=== PATIENT | female | born 1995 | race Caucasian/White ===

== ENCOUNTER 2017-02-17 09:34 | Emergency (ER) | payer OTHER ==
[2017-02-17 09:44] VITALS: BP 98/62; PULSE 82; TEMP 98; BMI 21.9
[2017-02-17] MEDS ORDERED: MAG HYDROX/AL HYDROX/SIMETH 30 ML UNIT-DOSE CUP PO ONE (10:54)
[2017-02-17] MEDS ORDERED: IBUPROFEN 600 MG TABLET (FP) PO ONE ×2 (10:54→11:39)
[2017-02-17 11:17] LABS: MCH 29.3 pg (25.7-33.7); MCHC 33.8 g/dl (32.0-36.0); MEAN CELL VOLUME 86.9 fl (80-96); MEAN PLT VOLUME 7.3 fl (7.5-11.1); PLATELET COUNT 275 K/MM3 (134-434); RDW 13.5 % (11.6-15.6); WHITE BLOOD COUNT 10.2 K/mm3 (4.0-10.0)
[2017-02-17] MEDS ORDERED: MAG HYDROX/AL HYDROX/SIMETH 30 ML UNIT-DOSE CUP ONE (11:39)
--- NOTE | 2017-02-17 11:40 | PDOC ---
History of Present Illness - General Chief Complaint: Chest Pain Stated Complaint: CHEST PAIN Time Seen by Provider: 02/17/17 10:53 History Source: Patient Exam Limitations: No Limitations - History of Present Illness Initial Comments: 02/17/17 11:36 21 yr female with one year of chest pain, left sided "stabbing sensation" under the left breast non radiating. Pt denies nausea or pressure, has IUD placed 2 months ago. Pt has not sought medical care until day when she told her cousin and they said to come to the ER. Pt currently does not have any chest pain. no fever or chills. Severity: reports: mild Possible Cause: Yes: frequent episodes (daily ) Past History - Past Medical History Allergies/Adverse Reactions: Allergies Allergy/AdvReac Type Severity Reaction Status Date / Time No Known Allergies Allergy Verified 02/17/17 09:39 Home Medications: Ambulatory Orders NK [No Known Home Medication] 02/17/17 Other medical history: NONE - Family Disease History Comment:: 02/17/17 11:38 none - Psycho/Social/Smoking Cessation Hx Anxiety: No Suicidal Ideation: No Smoking History: Never smoked Have you smoked in the past 12 months: Yes Number of Cigarettes Smoked Daily: 1 Information on smoking cessation initiated: Yes Hx Alcohol Use: No Drug/Substance Use Hx: No Substance Use Type: None Respiratory Specific PMHX - Complaint Specific PMHX Angina: No Bronchitis: No Pneumonia: No Pulmonary Embolus: No TB (Tuberculosis): No Review of Systems - Review of Systems Able to Perform ROS?: Yes Is the patient limited Arabic proficient: No Constitutional: No: Symptoms Reported HEENTM: No: Symptoms Reported Respiratory: No: Symptoms reported Cardiac (ROS): Yes: See HPI, Chest Pain ABD/GI: No: Symptoms Reported : No: Symptoms Reported Musculoskeletal: No: Symptoms Reported Integumentary: No: Symptoms Reported Neurological: No: Symptoms reported *Physical Exam - Vital Signs Last Vital Signs Temp Pulse Resp BP Pulse Ox 98.0 F 82 18 98/62 100 02/17/17 09:40 02/17/17 09:40 02/17/17 09:40 02/17/17 09:40 02/17/17 09:40 - Physical Exam General Appearance: Yes: Nourished, Appropriately Dressed HEENT: positive: EOMI, OLGA, Normal ENT Inspection, TMs Normal, Pharynx Normal Neck: positive: Supple. negative: Tender Respiratory/Chest: positive: Lungs Clear, Normal Breath Sounds, Other (breasts without lump or mass, no redness or discharge from breasts). negative: Chest Tender Cardiovascular: positive: Regular Rhythm, Regular Rate Gastrointestinal/Abdominal: positive: Normal Bowel Sounds, Soft Musculoskeletal: positive: Normal Inspection Extremity: positive: Normal Capillary Refill, Normal Inspection, Normal Range of Motion Integumentary: positive: Normal Color, Dry, Warm. negative: Rash, Swelling Neurologic: positive: Fully Oriented, Alert, Normal Mood/Affect, Normal Response , Motor Strength 5/5 Heart Score/ECG Review - Age Age: </= 45 - Risk Factors Risk Factors Heart Score: No Hx Hypercholesterolemia, No Hx Hypertension, No Hx Diabetes, Yes Smoking History, Yes Positive family hx of cardiac disease, No Hx Obesity Based on the list above the patient has:: 1-2 risk factors - ECG Intrepretation Rhythm: Regular Rhythm - ECG Impressions Comment:: 02/17/17 11:42 NSR with sinus arythmia unchanged from previous EKG ED Treatment Course - LABORATORY CBC & Chemistry Diagram: 02/17/17 10:56 02/17/17 10:56 - ADDITIONAL ORDERS Additional order review: Laboratory Results 02/17/17 10:56 Urine HCG, Qual Negative 02/17/17 10:56 RBC 4.34 MCV 86.9 MCHC 33.8 RDW 13.5 MPV 7.3 L Medical Decision Making - Medical Decision Making 02/17/17 11:39 cc: one year on and off stabbing sensation under left breast midline neg nvd neg fever or cough no pain at present EKG done in triage signed by in the ER NSR with sinus arrythmia will check labs, r/o PE 02/17/17 12:30 pt came to me stating that she has urinary frequency and urgency for 3 days. will check for UTI *DC/Admit/Observation/Transfer Diagnosis at time of Disposition: Chest pain Qualifiers: Chest pain type: unspecified Qualified Code(s): R07.9 - Chest pain, unspecified - Discharge Dispostion Disposition: HOME Condition at time of disposition: Good - Referrals Referrals: Roberto Lieberman MD [Staff Physician] - - Patient Instructions Additional Instructions: please call the real estate administrative assistant Dr. Lieberman for follow up, bring copies of your blood work with you make sure you drink pleanty of water to stay hydrated avoid any caffeinated beverages or supplements that contain stimulants or caffeine as this can make symptoms worse return to ER for any worsening symptoms
[2017-02-17 11:44] LABS: ANION GAP 8 (8-16); BILIRUBIN,TOTAL 0.3 mg/dL (0.2-1.0); CALCIUM 9.3 mg/dL (8.5-10.1); CO2 27 mmol/L (21-32); COCKROFT - GAULT 129.5825; CREATININE 0.6 mg/dL (0.55-1.02); GLUCOSE,RANDOM 94 mg/dL (74-106); SGOT/AST 20 U/L (15-37); SGPT/ALT 29 U/L (12-78); TOT PROT 7.4 g/dl (6.4-8.2)
[2017-02-17 11:46] LABS: ALK PHOS 80 U/L (45-117); TROPONIN I < 0.02 ng/ml (0.00-0.05)
[2017-02-17 12:51] LABS: URINE APPEARANCE CLEAR; URINE BILIRUBIN NEGATIVE (NEGATIVE); URINE COLOR LTYELLOW; URINE GLUCOSE (UA) NEGATIVE (NEGATIVE); URINE KETONE NEGATIVE (NEGATIVE); URINE LEUK ESTERASE NEGATIVE (NEGATIVE); URINE NITRITE NEGATIVE (NEGATIVE); URINE PROTEIN NEGATIVE (NEGATIVE); URINE UROBILINOGEN NEGATIVE E.U./dl (0.2-1.0)
[2017-02-17 12:53] LABS: URINE BLOOD 2+ (NEGATIVE)
[2017-02-17 12:55] LABS: URINE RBC 5 /hpf (0-3); URINE WBC 1 /hpf (3-5)
--- NOTE | 2017-02-18 10:53 | EKG ---
Test Reason : Blood Pressure : / mmHG Vent. Rate : 066 BPM Atrial Rate : 066 BPM P-R Int : 142 ms QRS Dur : 074 ms QT Int : 394 ms P-R-T Axes : 024 028 016 degrees QTc Int : 413 ms SINUS RHYTHM WITH MARKED SINUS ARRHYTHMIA OTHERWISE NORMAL ECG WHEN COMPARED WITH ECG OF 29-MAY-2014 18:54, NO SIGNIFICANT CHANGE WAS FOUND Confirmed by DALE YEAGER MD ([id number]) on 02/18/2017 10:53:05 AM Referred By: Confirmed By:DALE YEAGER MD
== END 2017-02-17 15:21 | disposition home or self-care (01) ==
LOC: JERFT 09:34
DX: R07.9 Chest pain, unspecified (principal)
CPT/HCPCS: 36415; 71275-TC; 80053; 81003; 81015; 82550; 84443; 84481; 84484; 84703; 85027; 85379; 87086; 93005; 93010; 99282-25

== ENCOUNTER 2017-05-11 10:50 | Emergency (ER) | payer OTHER ==
[2017-05-11 11:46] VITALS: BP 118/55; PULSE 82; TEMP 98.3; BMI 21.9
--- NOTE | 2017-05-11 13:46 | PDOC ---
History of Present Illness - General Chief Complaint: Edema Stated Complaint: BLISTERS ON BOTH LEGS Time Seen by Provider: 05/11/17 13:18 Past History - Past Medical History Allergies/Adverse Reactions: Allergies Allergy/AdvReac Type Severity Reaction Status Date / Time No Known Allergies Allergy Verified 05/11/17 11:40 Home Medications: Ambulatory Orders Sulfamethoxazole/Trimethoprim [Bactrim Ds -] 1 tab PO BID #14 tablet 05/11/17 Diabetes: No HTN: No Hypercholesterolemia: No Other medical history: DENIES. - Psycho/Social/Smoking Cessation Hx Anxiety: No Suicidal Ideation: No Smoking History: Current every day smoker Have you smoked in the past 12 months: Yes Number of Cigarettes Smoked Daily: 3 Information on smoking cessation initiated: No Hx Alcohol Use: No Drug/Substance Use Hx: No Substance Use Type: None *Physical Exam - Vital Signs Last Vital Signs Temp Pulse Resp BP Pulse Ox 98.3 F 82 19 118/55 97 05/11/17 11:40 05/11/17 11:40 05/11/17 11:40 05/11/17 11:40 05/11/17 11:40 *DC/Admit/Observation/Transfer Diagnosis at time of Disposition: Blister of leg, left Qualifiers: Encounter type: initial encounter Qualified Code(s): S80.822A - Blister ( nonthermal), left lower leg, initial encounter Blister of leg, right Qualifiers: Encounter type: initial encounter Qualified Code(s): S80.821A - Blister ( nonthermal), right lower leg, initial encounter - Discharge Dispostion Disposition: HOME Condition at time of disposition: Good Admit: No - Referrals Referrals: Charla Camp MD [Staff Physician] - - Patient Instructions Printed Discharge Instructions: DI for Blisters Additional Instructions: You have blisters on your legs. Two were drained in the Emergency department and sent for culture. You may call [phone] for your results. You were started on antibiotics. Take as prescribed and finish the dose even if you feel better. Follow up with dermatology within one week. Return to the ED if the blisters get worse, you have increasing pain, develop fevers chills, or any changes in your symptoms. - Post Discharge Activity Work/School Note: Back to Work
== END 2017-05-11 13:55 | disposition home or self-care (01) ==
LOC: JER 10:50 → JERFT 10:50
DX: S80.822A Blister (nonthermal), left lower leg, initial encounter (principal); S80.821A Blister (nonthermal), right lower leg, initial encounter
CPT/HCPCS: 87070; 87186; 87205; 99281-25

== ENCOUNTER 2018-12-02 19:07 | Emergency (ER) | payer OTHER ==
[2018-12-02 19:13] VITALS: BP 103/58; PULSE 77; TEMP 98.3; BMI 25.6
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
[2018-12-02] MEDS ORDERED: ACETAMINOPHEN 500 MG TABLET (FP) PO ONE (19:52)
[2018-12-02] MEDS ORDERED: ACETAMINOPHEN 500 MG TABLET (FP) ONE (19:54)
== END 2018-12-02 21:29 | disposition home or self-care (01) ==
LOC: JERFT 19:07
DX: S09.90XA Unspecified injury of head, initial encounter (principal); V43.52XA Car driver injured in collision with other type car in traffic accident, initial encounter; Y93.89 Activity, other specified; Y92.410 Unspecified street and highway as the place of occurrence of the external cause
CPT/HCPCS: 70450-TC; 84703; 99281-25

== ENCOUNTER 2019-05-02 17:51 | Emergency (ER) | payer BC, OTHER ==
[2019-05-02 17:59] VITALS: BP 101/65; PULSE 73; TEMP 97.7; BMI 29.2
--- NOTE | 2019-05-02 18:19 | PDOC ---
History of Present Illness - General Chief Complaint: Ingrown toenail Stated Complaint: TOES INFECTED Time Seen by Provider: 05/02/19 18:04 History Source: Patient Exam Limitations: No Limitations - History of Present Illness Initial Comments: 05/02/19 18:17 HISTORY OF PRESENT ILLNESS: 23-year-old woman denies medical history who presents to the emergency department for evaluation of right great toe pain and swelling after receiving a pedicure 3 days ago. Patient denies any discharge or drainage from the wound. Patient reports she has not had a fever. No recent travel or sick contacts. PAST MEDICAL HISTORY: Denies past medical history SURGICAL HISTORY: Denies ALLERGIES: No known drug allergies REVIEW OF SYSTEMS General/Constitutional: Denies fever or chills. Denies weakness, weight change. HEENT: Denies change in vision. Denies ear pain or discharge. Denies sore throat. Cardiovascular: Denies chest pain or shortness of breath. Respiratory: Denies cough, wheezing, or hemoptysis. Gastrointestinal: Denies nausea, vomiting, diarrhea or constipation. Denies rectal bleeding. Genitourinary: Denies dysuria, frequency, or change in urination. Musculoskeletal: Denies joint or muscle swelling or pain. Denies neck or back pain. Skin and breasts: see HPI Neurologic: Denies headache, vertigo, loss of consciousness, or loss of sensation. Psychiatric: Denies depression or anxiety. Endocrine: Denies increased thirst. Denies abnormal weight change. Hematologic/Lymphatic: Denies anemia, easy bleeding, or history of blood clots. Allergic/Immunologic: Denies hives or skin allergy. Denies latex allergy. PHYSICAL EXAM General Appearance: Well-appearing, appropriately dressed. No apparent distress , no intoxication. Vascular Pulses: Dorsalis-Pedis (R): 2+, Dorsalis-Pedis (L): 2+ Musculoskeletal/Extremities: Normal inspection. FROM of all extremities, normal capillary refill. Pelvis Stable. No CVA tenderness. No tenderness to extremities, pedal edema, swelling, erythema or deformity. Integumentary: Erythema and tenderness present over the medial cuticle of the right great toe. No discharge or drainage present no area of fluctuance noted. Scant dry blood present. The eponychial without any active bleeding. Full active range of motion of right great toe noted. No lymphangitis present. Capillary refill less than 2 seconds. Past History - Past Medical History Allergies/Adverse Reactions: Allergies Allergy/AdvReac Type Severity Reaction Status Date / Time No Known Allergies Allergy Verified 05/02/19 17:58 Home Medications: Ambulatory Orders Cephalexin Monohydrate [Keflex -] 500 mg PO Q6H #28 capsule 05/02/19 COPD: No Diabetes: No HTN: No Hypercholesterolemia: No - Immunization History Immunization Up to Date: Yes - Suicide/Smoking/Psychosocial Hx Smoking History: Never smoked Have you smoked in the past 12 months: Yes Number of Cigarettes Smoked Daily: 3 Hx Alcohol Use: No Drug/Substance Use Hx: No Substance Use Type: None *Physical Exam - Vital Signs Last Vital Signs Temp Pulse Resp BP Pulse Ox 97.7 F 73 14 101/65 99 05/02/19 17:56 05/02/19 17:56 05/02/19 17:56 05/02/19 17:56 05/02/19 17:56 Medical Decision Making - Medical Decision Making 05/02/19 18:19 A/P: 23-year-old woman with cellulitis of right great toe Physical exam is consistent with a cellulitis possible early paronychia without any obvious drainage at this time. Patient instructed to perform warm soaks at home and was given a prescription for Keflex 500 4 times a day to be taken for the next 7 days. I discussed the physical exam findings, ancillary test results and final diagnoses with the patient. I answered all of the patient's questions. The patient was satisfied with the care received and felt comfortable with the discharge plan and treatment plan. The patient will call their primary care physician within 24 hours to arrange follow-up and will return to the Emergency Department with any new, persistent or worsening symptoms. Portions of this note have been documented using voice recognition software. As a result, errors may occur in the croze machine operator process. Effort has been made to correct all grammatical and croze machine operator error, but some may have been missed. *DC/Admit/Observation/Transfer Diagnosis at time of Disposition: Cellulitis of great toe of right foot - Discharge Dispostion Disposition: HOME Condition at time of disposition: Stable Decision to Admit order: No - Prescriptions Prescriptions: Cephalexin Monohydrate [Keflex -] 500 mg PO Q6H #28 capsule - Referrals - Patient Instructions Additional Instructions: Take Keflex 500 mg 4 times a day for the next 7 days Finish all antibiotics even if you feel better. Apply warm soaks to your foot 3 times a day as needed. Return to emergency department for any worsening pain, drainage, or any other concerns. Thank you very much for choosing us to provide your emergent health care needs. - Post Discharge Activity
== END 2019-05-02 18:19 | disposition home or self-care (01) ==
LOC: JERFT 17:51
DX: L03.031 Cellulitis of right toe (principal)
CPT/HCPCS: 99281-25

== ENCOUNTER 2019-05-07 01:47 | Emergency (ER) | payer BC, OTHER ==
[2019-05-07 02:07] VITALS: BP 105/62; PULSE 78; TEMP 97.6; BMI 28.3
--- NOTE | 2019-05-07 02:30 | PDOC ---
History of Present Illness - General Chief Complaint: Ingrown toenail Stated Complaint: SWELLING,PAIN/RT TOE Time Seen by Provider: 05/07/19 02:28 - History of Present Illness Initial Comments: 05/07/19 03:06 Redness of right toe beginning (04/29/19) following pedicure. Patient evaluated [facility] (05/02/19), and given Keflex 500 mg Q6. Patient denies GOOD, vision change, palpitations, cough, wheezing, orthopena, PND , leg swelling/pain, N/V, F,C, CP, SOB, urinary complaints, hematuria, BPR, abdominal pain, diarrhea, constipation, lightheadedness, weakness, sensory changes. PMHx: as noted above ROS: as noted SHx: Denies Etoh, IVDA, tobacco use Allergies: NKDA Past History - Past Medical History Allergies/Adverse Reactions: Allergies Allergy/AdvReac Type Severity Reaction Status Date / Time No Known Allergies Allergy Verified 05/07/19 02:11 Home Medications: Ambulatory Orders Cephalexin Monohydrate [Keflex -] 500 mg PO Q6H #28 capsule 05/02/19 COPD: No Diabetes: No HTN: No Hypercholesterolemia: No - Immunization History Immunization Up to Date: Yes - Suicide/Smoking/Psychosocial Hx Smoking History: Unknown if ever smoked Have you smoked in the past 12 months: Yes Number of Cigarettes Smoked Daily: 3 Hx Alcohol Use: No Drug/Substance Use Hx: No Substance Use Type: None Review of Systems - Review of Systems Comments:: 05/07/19 03:06 GENERAL/CONSTITUTIONAL: No fever or chills. No weakness. HEAD, EYES, EARS, NOSE AND THROAT: No change in vision. No ear pain or discharge. No sore throat. CARDIOVASCULAR: No chest pain or shortness of breath RESPIRATORY: No cough, wheezing, or hemoptysis. GASTROINTESTINAL: No nausea, vomiting, diarrhea or constipation. GENITOURINARY: No dysuria, frequency, or change in urination. MUSCULOSKELETAL: + right toe pain and swelling. No joint or muscle swelling or pain. No neck or back pain. SKIN: No rash NEUROLOGIC: No headache, vertigo, loss of consciousness, or change in strength/ sensation. ENDOCRINE: No increased thirst. No abnormal weight change HEMATOLOGIC/LYMPHATIC: No anemia, easy bleeding, or history of blood clots. ALLERGIC/IMMUNOLOGIC: No hives or skin allergy. *Physical Exam - Vital Signs Last Vital Signs Temp Pulse Resp BP Pulse Ox 97.6 F 78 18 105/62 98 05/07/19 01:52 05/07/19 01:52 05/07/19 01:52 05/07/19 01:52 05/07/19 01:52 - Physical Exam Comments: 05/07/19 03:06 GENERAL: Awake, alert, and fully oriented, in no acute distress HEAD: No signs of trauma, normocephalic, atraumatic EYES: PERRLA, EOMI, sclera anicteric, conjunctiva clear ENT: Auricles normal inspection, hearing grossly normal, nares patent, oropharynx clear without exudates. Moist mucosa NECK: Normal ROM, supple, no lymphadenopathy, JVD, or masses LUNGS: No distress, speaks full sentences, clear to auscultation bilaterally HEART: Regular rate and rhythm, normal S1 and S2, no murmurs, rubs or gallops, peripheral pulses normal and equal bilaterally. ABDOMEN: Soft, nontender, normoactive bowel sounds. No guarding, no rebound. No masses EXTREMITIES : Normal inspection, Normal range of motion, no edema. No clubbing or cyanosis. NEUROLOGICAL: Cranial nerves II through XII grossly intact. Normal speech, normal gait, no focal sensorimotor deficits SKIN: Warm, Dry, normal turgor, no rashes or lesions noted *DC/Admit/Observation/Transfer - Referrals - Patient Instructions Additional Instructions: Please return to the emergency department with any new or worsening symptoms or concerns. Please follow up with your primary care physician within 72 hours. - Post Discharge Activity
--- NOTE | 2019-05-07 03:20 | PDOC ---
Attending Attestation - Resident Resident Name: Dick Aguiar - ED Attending Attestation I have performed the following: I have examined & evaluated the patient, The case was reviewed & discussed with the resident, I agree w/resident's findings & plan, Exceptions are as noted
== END 2019-05-07 03:26 | disposition left against medical advice (07) ==
LOC: JER 01:47
DX: Z53.21 Procedure and treatment not carried out due to patient leaving prior to being seen by health care provider (principal)
CPT/HCPCS: 99281-25

== ENCOUNTER 2019-05-07 08:38 | Emergency (ER) | payer BC, OTHER ==
[2019-05-07 08:55] VITALS: BP 98/64; PULSE 73; TEMP 98.2; BMI 29.2
--- NOTE | 2019-05-07 09:31 | PDOC ---
History of Present Illness - General Chief Complaint: Pain, Acute Stated Complaint: RT TOE INFECTION Time Seen by Provider: 05/07/19 09:02 History Source: Patient Exam Limitations: No Limitations - History of Present Illness Initial Comments: 05/07/19 09:14 Patient is here with complaints of right great toe pain and swelling. States received pedicure a few days ago and has an infection to the medial aspect/ paronychia. Occurred: reports: just prior to arrival Severity: reports: mild Pain Location: reports: lower extremity (right great toe ) Loss of Consciousness: no loss of consciousness Associated Symptoms (Fall): denies symptoms Past History - Travel Traveled outside of the country in the last 30 days: No Close contact w/someone who was outside of country & ill: No - Past Medical History Allergies/Adverse Reactions: Allergies Allergy/AdvReac Type Severity Reaction Status Date / Time No Known Allergies Allergy Verified 05/07/19 08:52 Home Medications: Ambulatory Orders Cephalexin Monohydrate [Keflex -] 500 mg PO Q6H #28 capsule 05/02/19 Sulfamethoxazole/Trimethoprim [Bactrim *Ds*] 1 each PO BID #10 tablet 05/07/19 COPD: No Diabetes: No HTN: No Hypercholesterolemia: No - Immunization History Immunization Up to Date: Yes - Suicide/Smoking/Psychosocial Hx Smoking History: Never smoked Have you smoked in the past 12 months: Yes Number of Cigarettes Smoked Daily: 3 Information on smoking cessation initiated: No Hx Alcohol Use: No Drug/Substance Use Hx: No Substance Use Type: None Review of Systems - Review of Systems Able to Perform ROS?: Yes Is the patient limited Albanian proficient: Yes Constitutional: Yes: Symptoms Reported, See HPI HEENTM: No: Symptoms Reported Respiratory: No: Symptoms reported Musculoskeletal: Yes: Symptoms Reported, See HPI Integumentary: Yes: Symptoms Reported, See HPI, Erythema Neurological: No: Symptoms reported All Other Systems: Reviewed and Negative *Physical Exam - Vital Signs Last Vital Signs Temp Pulse Resp BP Pulse Ox 98.2 F 73 17 98/64 97 05/07/19 08:52 05/07/19 08:52 05/07/19 08:52 05/07/19 08:52 05/07/19 08:52 - Physical Exam General Appearance: Yes: Nourished, Appropriately Dressed, Apparent Distress, Mild Distress HEENT: positive: OLGA, Normal ENT Inspection, TMs Normal, Pharynx Normal Neck: positive: Supple Extremity: positive: Swelling (great toe fluctuance and tenderness to the medial aspect of right side. Full range of motion, and sensation intact) Integumentary: positive: Normal Color, Other Neurologic: positive: data entry specialist II-XII NML intact, Fully Oriented, Alert, Normal Mood/ Affect, Normal Response, Motor Strength 5/5 Procedures - Incision and Drainage I&D Site: Right: Paronychia (right great toe) Anesthesia: 1% Lidocaine Blade Size: 11 Complications: none Dressing: No Progress Note - Progress Note Progress Note: parOnychia incised and drained *DC/Admit/Observation/Transfer Diagnosis at time of Disposition: Paronychia - Discharge Dispostion Disposition: HOME Condition at time of disposition: Stable Decision to Admit order: No - Prescriptions Prescriptions: Sulfamethoxazole/Trimethoprim [Bactrim *Ds*] 1 each PO BID #10 tablet - Referrals - Patient Instructions Printed Discharge Instructions: DI for Paronychia Additional Instructions: Rest, keep hand elevated Avoid heavy lifting or strenuous activity until healed Soak finger every 2-3 hours while awake for the next 2-3 days to keep continue to allow drainage Reapply bacitracin ointment and bulky dressing after each soaking May use ibuprofen or Tylenol for pain relief Followup with private physician in one to 2 days for wound check as needed Return immediately to emergency department or private doctor's for worsening redness, swelling, pain, streaking Take all of antibiotics until completed - Post Discharge Activity Forms/Work/School Notes: Back to Work
[2019-05-07] MEDS ORDERED: IBUPROFEN 600 MG TABLET (FP) PO ONE (09:37)
== END 2019-05-07 09:45 | disposition home or self-care (01) ==
LOC: JERFT 08:38
PROC: 0H9MXZZ Drainage of Right Foot Skin, External Approach (ICD-10-PCS; principal; 2019-05-07)
DX: L03.031 Cellulitis of right toe (principal)
CPT/HCPCS: 82962; 87070; 87186; 87205; 99282-25

== ENCOUNTER 2022-05-27 05:01 | Day surgery (SDC) | payer OTHER ==
[2022-05-23 11:11] VITALS: BMI 23.2
[2022-05-27] MEDS ORDERED: PROPOFOL 60 ML ONE (06:45)
[2022-05-27] MEDS ORDERED: ROCURONIUM BROMIDE 50 MG/5 ML SYRINGE ONE ×2 (06:45→08:58)
[2022-05-27] MEDS ORDERED: LIDOCAINE HCL/PF 2% SDV 5ML VIAL ONE (06:45)
[2022-05-27] MEDS ORDERED: ACETAMINOPHEN INJECTION 100 ML IVPB ONE ×2 (06:53→07:08)
[2022-05-27] MEDS ORDERED: DEXAMETHASONE SOD PHOSPHATE 4 MG/1 ML VIAL ONE (06:54)
[2022-05-27] MEDS ORDERED: MIDAZOLAM HCL 2 MG/2 ML SINGLE DOSE VIAL ONE (07:01)
[2022-05-27] MEDS ORDERED: BUPIVACAINE HCL 100 ML ONE (07:29)
[2022-05-27] MEDS ORDERED: ceFAZolin SODIUM 1 GM VIAL ONE (07:57)
[2022-05-27] MEDS ORDERED: ceFAZolin SODIUM 1 GM VIAL IVPB ONE (08:00)
[2022-05-27] MEDS ORDERED: NEOSTIGMINE METHYLSULFATE 0.5 MG/ML - 10 ML MDV ONE (08:21)
[2022-05-27] MEDS ORDERED: GLYCOPYRROLATE 0.2 MG/1 ML VIAL ONE (08:21)
[2022-05-27] MEDS ORDERED: BUPIVACAINE HCL/PF 0.5% (5 MG/ML) 30 ML VIAL IJ ONE ×2 (09:22)
[2022-05-27] MEDS ORDERED: ONDANSETRON 4 MG/2 ML VIAL IVPUSH PRN (09:47)
[2022-05-27] MEDS ORDERED: LACTATED RINGERS SOLUTION 1,000 ML IV SCH (10:00)
[2022-05-27 12:55] VITALS: BP 102/59; PULSE 68; RESP 18; TEMP 97.2
== END 2022-05-27 13:28 | disposition home or self-care (01) ==
LOC: JASUSAT 05:01
PROVIDERS: ATTEND Obstetrics & Gynecology
PROC: 0UB24ZZ Excision of Bilateral Ovaries, Percutaneous Endoscopic Approach (ICD-10-PCS; principal; 2022-05-27 07:30)
DX: D27.0 Benign neoplasm of right ovary (principal); N83.12 Corpus luteum cyst of left ovary
CPT/HCPCS: 81025; 88304-TC; 94760

== ENCOUNTER 2023-10-02 12:58 | Emergency (ER) | payer OTHER ==
[2023-10-02] MEDS ORDERED: METOCLOPRAMIDE HCL INJECTION 10 MG/2 ML VIAL IVPUSH ONE (13:11)
[2023-10-02] MEDS ORDERED: SODIUM CHLORIDE 0.9% 500 ML INFUS.BAG IV ONE (13:11)
[2023-10-02] MEDS ORDERED: ACETAMINOPHEN 1000 MG/100 ML BAG IVPB ONE (13:11)
[2023-10-02 14:35] VITALS: RESP 18; BMI 23.8
[2023-10-02] MEDS ORDERED: METOCLOPRAMIDE HCL INJECTION 10 MG/2 ML VIAL ONE (14:35)
[2023-10-02] MEDS ORDERED: ACETAMINOPHEN INJECTION 100 ML IVPB ONE (14:35)
[2023-10-02 15:04] LABS: BASO % 0.4 % (0-2.0); EOS % 0.2 % (0-4.5); HEMATOCRIT 40.3 % (32.4-45.2); HEMOGLOBIN 13.1 GM/dL (10.7-15.3); LYMPH % 23.8 % (8-40); MCH 28.7 pg (25.7-33.7); MCHC 32.5 g/dl (32.0-36.0); MEAN CELL VOLUME 88.2 fl (80-96); MEAN PLT VOLUME 6.9 fl (7.5-11.1); MONO % 7.5 % (3.8-10.2); NEUT % 68.1 % (42.8-82.8); PLATELET COUNT 347 10^3/uL (134-434); RBC 4.57 M/mm3 (3.60-5.2); RDW 12.6 % (11.6-15.6)
[2023-10-02] MEDS ORDERED: KETOROLAC TROMETHAMINE 30 MG/1 ML VIAL IVPUSH ONE (15:13)
[2023-10-02] MEDS ORDERED: KETOROLAC TROMETHAMINE 30 MG/1 ML VIAL ONE (15:21)
[2023-10-02 15:26] LABS: POTASSIUM 4.4 mmol/L (3.5-5.1)
[2023-10-02 15:27] LABS: CALCIUM 9.6 mg/dL (8.5-10.1)
[2023-10-02 15:28] LABS: BLOOD UREA NITROGEN 11.5 mg/dL (7-18)
[2023-10-02 15:31] LABS: CREATININE 0.6 mg/dL (0.55-1.3)
[2023-10-02 17:00] VITALS: BP 103/51; PULSE 61; TEMP 97.8
== END 2023-10-02 17:00 | disposition home or self-care (01) ==
LOC: JERFT 12:58
PROC: 3E033NZ Introduction of Analgesics, Hypnotics, Sedatives into Peripheral Vein, Percutaneous Approach (ICD-10-PCS; principal; 2023-10-02)
PROC: 3E0333Z Introduction of Anti-inflammatory into Peripheral Vein, Percutaneous Approach (ICD-10-PCS; 2023-10-02)
PROC: 3E033GC Introduction of Other Therapeutic Substance into Peripheral Vein, Percutaneous Approach (ICD-10-PCS; 2023-10-02)
DX: G43.901 Migraine, unspecified, not intractable, with status migrainosus (principal)
CPT/HCPCS: 36415; 70450-TC; 80048; 84703; 85025; 99284-25